=== PATIENT | male | born 1980 | race Caucasian/White ===

== ENCOUNTER 2022-08-12 16:54 | Inpatient (IN) | payer MEDICAID ==
[~2022-08-12] VITALS: Ht 162.6 cm; Wt 61.2 kg
[2022-08-12 18:35] LABS: BASOPHILS % 0.6 % (0.0-2.0); HEMATOCRIT. 31.7 % (42.0-52.0); HEMOGLOBIN. 11.2 g/dL (14.0-18.0); LYMPHOCYTES % 26.1 % (20.0-50.0); MEAN CORPUSCULAR HEMOGLOBIN 34.3 pg (28.0-32.0); MEAN CORPUSCULAR VOLUME 96.9 fL (80.0-94.0); MEAN PLATELET VOLUME 8.9 fl (7.4-10.4); MONOCYTES % 8.9 % (2.0-8.0); NEUTROPHILS % 63.4 % (40.0-76.0); PLATELET 324 x1000/uL (130-400); RED BLOOD CELL COUNT 3.27 mill/uL (4.7-6.1); RED CELL DISTRIBUTION WIDTH 12.4 % (11.6-14.6)
[2022-08-12 18:42] LABS: CHLORIDE 105 mEq/L (98-107)
[2022-08-12 18:55] LABS: ETHANOL BLOOD < 10 mg/dL
[2022-08-12] MEDS ORDERED: ASPIRIN 81MG TABLET PO ONE (19:00)
[2022-08-12] MEDS ORDERED: LORAZEPAM 1MG TABLET PO NR (20:45)
[2022-08-12] MEDS ORDERED: CLONAZEPAM 1MG TABLET PO NR (21:45)
[2022-08-12] MEDS ORDERED: LORAZEPAM 2MG/ML CPJ IV ONE (22:15)
[2022-08-12] MEDS ORDERED: CHLORDIAZEPOXIDE 25MG CAPSULE PO PRN (22:20)
[2022-08-12 22:39] LABS: HEPATITIS B SURFACE ANTIGEN NEGATIVE
[2022-08-12] MEDS ORDERED: LORAZEPAM 2MG/ML SYR IV SCH (23:15)
[2022-08-13] VITALS (55 sets, daily range): BP systolic 99–133; BP diastolic 50–91
[2022-08-13] MEDS: LORAZEPAM 2MG/ML CPJ IV SCH ×4 (00:52→05:30)
[2022-08-13] MEDS ORDERED: FOLIC ACID 1 MG, THIAMINE HCL 100 MG, MVI, ADULT NO.1 10 ML in DEXTROSE 5% WATER 1,000 ML IV NR ×4 (01:00)
[2022-08-13] MEDS ORDERED: LEVETIRACETAM 1,000 MG in SODIUM CHLORIDE 0.9% 100 ML IV ONE (01:00)
[2022-08-13] MEDS ORDERED: LEVETIRACETAM 1000MG PREMIX 100 ML IV NR (01:30)
[2022-08-13 04:49] LABS: BG BASE EXCESS 0.7 mmol/L (-2.0-2.0); BG CARBOXYHEMOGLOBIN 0.3 % (0.5-1.5); BG DEOXYHEMOGLOBIN 0.6 % (0.0-5.0); BG FRACTION INSPIRED OXYGEN 100; BG HCO3 ACT 24.9 mmol/L (22.0-26.0); BG METHEMOGLOBIN 0.4 % (0.0-1.5); BG OXYGEN SATURATION 99.4 % (92.0-98.5); BG OXYHEMOGLOBIN 98.7 % (94.0-97.0); BG PCO2 38.5 mmHg (35.0-45.0); BG PH 7.429 (7.350-7.450); BG PO2 339.5 mmHg (75.0-100.0); BG SAMPLE SITE RIGHT RADIAL; BG TOTAL HEMOGLOBIN 10.9 g/dL (12.0-18.0); BG VENT MODE MASK - NRB
[2022-08-13 05:23] LABS: BASOPHILS % 0.4 % (0.0-2.0); EOSINOPHILS % 0.6 % (0.0-5.0); HEMATOCRIT. 27.8 % (42.0-52.0); HEMOGLOBIN. 9.9 g/dL (14.0-18.0); LYMPHOCYTES % 23.6 % (20.0-50.0); MEAN CORPUSCULAR HEMOGLOBIN 34.5 pg (28.0-32.0); MEAN CORPUSCULAR VOLUME 96.2 fL (80.0-94.0); MEAN PLATELET VOLUME 8.6 fl (7.4-10.4); MONOCYTES % 10.3 % (2.0-8.0); NEUTROPHILS % 65.1 % (40.0-76.0); PLATELET 273 x1000/uL (130-400); RED BLOOD CELL COUNT 2.89 mill/uL (4.7-6.1); RED CELL DISTRIBUTION WIDTH 12.3 % (11.6-14.6)
[2022-08-13 05:29] LABS: CHLORIDE 105 mEq/L (98-107); PHOSPHORUS 4.1 mg/dL (2.5-4.9)
[2022-08-13] MEDS ORDERED: LORAZEPAM 2MG/ML CPJ IV PRN (07:00)
[2022-08-13] MEDS ORDERED: LEVETIRACETAM 500 MG in SODIUM CHLORIDE 0.9% 100 ML IV SCH (09:00)
[2022-08-13] MEDS ORDERED: LEVETIRACETAM 500MG PREMIX 100 ML IV SCH (09:00)
[2022-08-13] MEDS: LEVETIRACETAM 1,000 MG in SODIUM CHLORIDE 0.9% 100 ML IV SCH ×2 (09:08→21:35)
[2022-08-13] MEDS ORDERED: ONDANSETRON HCL 4MG/2ML INJ IV PRN (10:30)
[2022-08-13] MEDS ORDERED: CEFTRIAXONE 2GM/50ML (ADDEASE) 50 ML IV SCH (10:30)
[2022-08-13 10:37] LABS: CLARITY URINE CLEAR (CLEAR); COLOR URINE DARK YELLOW (YELLOW); KETONES URINE NEGATIVE (NEGATIVE); LEUKOCYTE ESTERASE URINE NEGATIVE (NEGATIVE); NITRITE URINE NEGATIVE (NEGATIVE); OCCULT BLOOD URINE NEGATIVE (NEGATIVE); PH URINE 6.5 (4.5-8.0); PROTEIN URINE NEGATIVE (NEGATIVE); SPECIFIC GRAVITY URINE 1.016 (1.005-1.030)
[2022-08-13] MEDS: SODIUM CHLORIDE 0.9% 1,000 ML IV SCH ×2 (10:49→17:46)
[2022-08-13] MEDS: PANTOPRAZOLE SODIUM 40 MG/VIAL IV SCH (10:50)
[2022-08-13 10:58] LABS: *AMPHETAMINES SCREEN URINE NEGATIVE (NEGATIVE); *BARBITURATES SCREEN URINE NEGATIVE (NEGATIVE); *BENZODIAZEPINES SCREEN URINE NEGATIVE (NEGATIVE); *COCAINE SCREEN URINE NEGATIVE (NEGATIVE); CANNABINOID URINE SCREEN NEGATIVE (NEGATIVE); METHADONE URINE SCREEN NEGATIVE (NEGATIVE); OPIATES URINE SCREEN NEGATIVE (NEGATIVE); PHENCYCLIDINE URINE SCREEN NEGATIVE (NEGATIVE)
[2022-08-13] MEDS: CEFTRIAXONE 2 G in DEXTROSE 5% WATER 50 ML IV SCH (12:24)
[2022-08-13] MEDS ORDERED: VANCOMYCIN 1G PREMIX 200 ML IV NR (13:30)
[2022-08-13] MEDS: ACYCLOVIR INJ 750 MG in DEXT 5% WATER 100 ML IV SCH ×2 (14:45→21:36)
[2022-08-13] MEDS: VANCOMYCIN 750MG PREMIX 150 ML IV SCH (22:17)
[2022-08-14] VITALS (38 sets, daily range): BP systolic 98–127; BP diastolic 45–100
[2022-08-14] MEDS: CEFTRIAXONE 2 G in DEXTROSE 5% WATER 50 ML IV SCH ×2 (00:32→11:42)
[2022-08-14] MEDS: SODIUM CHLORIDE 0.9% 1,000 ML IV SCH ×2 (02:30→10:27)
[2022-08-14 05:34] LABS: BASOPHILS % 0.3 % (0.0-2.0); EOSINOPHILS % 0.3 % (0.0-5.0); HEMATOCRIT. 30.3 % (42.0-52.0); HEMOGLOBIN. 10.6 g/dL (14.0-18.0); LYMPHOCYTES % 13.4 % (20.0-50.0); MEAN CORPUSCULAR HEMOGLOBIN 33.3 pg (28.0-32.0); MEAN CORPUSCULAR VOLUME 95.1 fL (80.0-94.0); MEAN PLATELET VOLUME 8.7 fl (7.4-10.4); MONOCYTES % 7.5 % (2.0-8.0); NEUTROPHILS % 78.5 % (40.0-76.0); PLATELET 297 x1000/uL (130-400); RED BLOOD CELL COUNT 3.19 mill/uL (4.7-6.1); RED CELL DISTRIBUTION WIDTH 12.2 % (11.6-14.6)
[2022-08-14 05:35] LABS: CHLORIDE 97 mEq/L (98-107)
[2022-08-14] MEDS: VANCOMYCIN 750MG PREMIX 150 ML IV SCH ×3 (06:21→22:08)
[2022-08-14] MEDS: PANTOPRAZOLE SODIUM 40 MG/VIAL IV SCH (08:42)
[2022-08-14] MEDS: ACYCLOVIR INJ 750 MG in DEXT 5% WATER 125 ML IV SCH ×2 (08:42→17:48)
[2022-08-14] MEDS: LEVETIRACETAM 1,000 MG in SODIUM CHLORIDE 0.9% 100 ML IV SCH (08:42)
[2022-08-14] MEDS: ACETAMINOPHEN 650MG/20.3ML UDC GT PRN (17:35)
[2022-08-14] MEDS ORDERED: NALOXONE HCL 0.4MG/ML VIAL IV PRN (21:30)
[2022-08-14] MEDS: HYDROCODONE/ACETAMINOPHEN 5/325MG TABLET PO PRN (22:01)
[2022-08-14] MEDS: LEVETIRACETAM 1000MG PREMIX 100 ML IV SCH (23:48)
[2022-08-14] MEDS: THIAMINE HCL 100MG TABLET PO SCH (23:56)
[2022-08-15] VITALS: BP 110/72
[2022-08-15] MEDS: ACYCLOVIR INJ 750 MG in DEXT 5% WATER 125 ML IV SCH ×4 (00:31→22:42)
[2022-08-15] MEDS: CEFTRIAXONE 2 G in DEXTROSE 5% WATER 50 ML IV SCH ×2 (01:41→13:15)
[2022-08-15] MEDS: SODIUM CHLORIDE 0.9% 1,000 ML IV SCH (01:41)
[2022-08-15] MEDS: LORAZEPAM 2MG/ML CPJ IV PRN (02:41)
[2022-08-15 04:00] VITALS: BP 133/70
[2022-08-15] MEDS: VANCOMYCIN 750MG PREMIX 150 ML IV SCH (05:45)
[2022-08-15 08:00] VITALS: BP 117/67
[2022-08-15] MEDS: THIAMINE HCL 100MG TABLET PO SCH (10:08)
[2022-08-15] MEDS: LEVETIRACETAM 1000MG PREMIX 100 ML IV SCH ×2 (10:08→20:07)
[2022-08-15] MEDS: PANTOPRAZOLE SODIUM 40 MG/VIAL IV SCH (10:08)
[2022-08-15 12:00] VITALS: BP 113/78
[2022-08-15] MEDS: VANCOMYCIN 1G PREMIX 200 ML IV SCH ×2 (14:08→21:08)
[2022-08-15 16:00] VITALS: BP 100/74
[2022-08-15] MEDS: ACETAMINOPHEN 650MG/20.3ML UDC GT PRN (18:50)
[2022-08-15 20:00] VITALS: BP 103/63
[2022-08-15] MEDS: HYDROCODONE/ACETAMINOPHEN 5/325MG TABLET PO PRN (22:18)
[2022-08-15] MEDS: ZOLPIDEM TARTRATE 5MG TABLET PO PRN (22:21)
[2022-08-16] VITALS: BP 120/80
[2022-08-16] MEDS: SODIUM CHLORIDE 0.9% 1,000 ML IV SCH ×3 (01:53→18:29)
[2022-08-16 04:00] VITALS: BP 101/77
[2022-08-16] MEDS: ACYCLOVIR INJ 750 MG in DEXT 5% WATER 125 ML IV SCH ×3 (05:55→23:05)
[2022-08-16] MEDS: HYDROCODONE/ACETAMINOPHEN 5/325MG TABLET PO PRN ×2 (06:35→22:25)
[2022-08-16 08:00] VITALS: BP 107/72
[2022-08-16 08:14] LABS: HIV SCREEN 4G Non Reactive (Non Reactive)
[2022-08-16] MEDS: LEVETIRACETAM 1000MG PREMIX 100 ML IV SCH ×2 (08:50→22:22)
[2022-08-16] MEDS: PANTOPRAZOLE SODIUM 40 MG/VIAL IV SCH (08:50)
[2022-08-16] MEDS: THIAMINE HCL 100MG TABLET PO SCH (08:50)
[2022-08-16 09:57] LABS: CHLORIDE 101 mEq/L (98-107)
[2022-08-16] MEDS ORDERED: LORAZEPAM 2MG/ML CPJ IV NR (10:00)
[2022-08-16 12:00] VITALS: BP 97/64
[2022-08-16 16:00] VITALS: BP 97/63
[2022-08-16] MEDS ORDERED: GADOTERATE MEGLUMINE 5 MMOL/10 ML VIAL IV ONE (18:13)
[2022-08-16 20:00] VITALS: BP 104/66
[2022-08-17] VITALS: BP 102/65
[2022-08-17] MEDS: SODIUM CHLORIDE 0.9% 1,000 ML IV SCH ×4 (01:15→21:54)
[2022-08-17 04:00] VITALS: BP 109/71
[2022-08-17] MEDS: HYDROCODONE/ACETAMINOPHEN 5/325MG TABLET PO PRN ×3 (05:03→19:22)
[2022-08-17] MEDS: ACYCLOVIR INJ 750 MG in DEXT 5% WATER 125 ML IV SCH ×3 (06:21→21:54)
[2022-08-17 08:00] VITALS: BP 104/56
[2022-08-17] MEDS: LEVETIRACETAM 1000MG PREMIX 100 ML IV SCH ×2 (10:07→21:54)
[2022-08-17] MEDS: PANTOPRAZOLE SODIUM 40 MG/VIAL IV SCH (10:07)
[2022-08-17] MEDS: THIAMINE HCL 100MG TABLET PO SCH (10:07)
[2022-08-17] MEDS ORDERED: LEVE1000 MT (10:30)
[2022-08-17] MEDS ORDERED: THIA100T72 PO (10:30)
[2022-08-17] MEDS ORDERED: VALA100044 MT (10:30)
[2022-08-17] MEDS ORDERED: LORA-249 MT (10:30)
[2022-08-17 12:00] VITALS: BP 98/56
[2022-08-17 16:00] VITALS: BP 104/66
[2022-08-17 20:00] VITALS: BP 101/58
[2022-08-17] MEDS: ZOLPIDEM TARTRATE 5MG TABLET PO PRN (21:55)
[2022-08-17] MEDS: METHOCARBAMOL 500MG TABLET PO PRN (22:14)
[2022-08-18] VITALS: BP 100/66
[2022-08-18] MEDS: HYDROCODONE/ACETAMINOPHEN 5/325MG TABLET PO PRN ×3 (00:31→23:59)
[2022-08-18 04:00] VITALS: BP 97/62
[2022-08-18] MEDS: ACYCLOVIR INJ 750 MG in DEXT 5% WATER 125 ML IV SCH ×3 (06:09→22:15)
[2022-08-18 08:00] VITALS: BP 108/71
[2022-08-18] MEDS: LEVETIRACETAM 1000MG PREMIX 100 ML IV SCH ×2 (08:56→20:29)
[2022-08-18] MEDS: THIAMINE HCL 100MG TABLET PO SCH (08:56)
[2022-08-18] MEDS: FAMOTIDINE 20MG TABLET PO SCH ×2 (08:58→18:08)
[2022-08-18] MEDS: SODIUM CHLORIDE 0.9% 1,000 ML IV SCH ×3 (09:31→23:58)
[2022-08-18 12:00] VITALS: BP 101/68
[2022-08-18 13:35] LABS: INR 1.1; PROTHROMBIN TIME 11.9 sec (9.6-11.0)
[2022-08-18 16:00] VITALS: BP 102/63
[2022-08-18 20:00] VITALS: BP 139/89
[2022-08-18] MEDS: METHOCARBAMOL 500MG TABLET PO PRN (22:16)
[2022-08-18] MEDS: ZOLPIDEM TARTRATE 5MG TABLET PO PRN (22:16)
[2022-08-19] VITALS: BP 104/69
[2022-08-19 03:59] VITALS: BP 100/67
[2022-08-19] MEDS: HYDROCODONE/ACETAMINOPHEN 5/325MG TABLET PO PRN ×2 (04:01→18:35)
[2022-08-19] MEDS: ACYCLOVIR INJ 750 MG in DEXT 5% WATER 125 ML IV SCH ×3 (06:21→21:16)
[2022-08-19] MEDS: LORAZEPAM 2MG/ML CPJ IV PRN (07:17)
[2022-08-19] MEDS ORDERED: LIDOCAINE HCL 1% 10 MG/ML 10ML VIAL ONE (07:24)
[2022-08-19 08:20] VITALS: BP 96/50
[2022-08-19] MEDS: THIAMINE HCL 100MG TABLET PO SCH (09:00)
[2022-08-19] MEDS: FAMOTIDINE 20MG TABLET PO SCH ×2 (09:00→17:54)
[2022-08-19 09:14] LABS: GLUCOSE CSF 59 mg/dL (41-75)
[2022-08-19] MEDS: LEVETIRACETAM 1000MG PREMIX 100 ML IV SCH ×2 (09:56→21:16)
[2022-08-19] MEDS: SODIUM CHLORIDE 0.9% 1,000 ML IV SCH ×2 (11:06→17:54)
[2022-08-19 12:00] VITALS: BP 94/58
[2022-08-19] MEDS: RISPERIDONE 1MG TABLET PO SCH (14:52)
[2022-08-19 16:00] VITALS: BP 97/68
[2022-08-19 20:00] VITALS: BP 102/66
[2022-08-19] MEDS: METHOCARBAMOL 500MG TABLET PO PRN (21:16)
[2022-08-19] MEDS: ZOLPIDEM TARTRATE 5MG TABLET PO PRN (21:16)
[2022-08-20] VITALS: BP 101/66
[2022-08-20] MEDS: HYDROCODONE/ACETAMINOPHEN 5/325MG TABLET PO PRN ×4 (00:44→20:57)
[2022-08-20 04:00] VITALS: BP 103/66
[2022-08-20] MEDS: SODIUM CHLORIDE 0.9% 1,000 ML IV SCH ×3 (05:39→17:45)
[2022-08-20] MEDS: ACYCLOVIR INJ 750 MG in DEXT 5% WATER 125 ML IV SCH ×3 (05:41→22:15)
[2022-08-20 07:42] LABS: BASOPHILS % 0.5 % (0.0-2.0); HEMATOCRIT. 29.2 % (42.0-52.0); HEMOGLOBIN. 10.4 g/dL (14.0-18.0); LYMPHOCYTES % 57.2 % (20.0-50.0); MEAN CORPUSCULAR HEMOGLOBIN 33.7 pg (28.0-32.0); MEAN CORPUSCULAR VOLUME 95.2 fL (80.0-94.0); MEAN PLATELET VOLUME 8.6 fl (7.4-10.4); MONOCYTES % 12.3 % (2.0-8.0); PLATELET 287 x1000/uL (130-400); RED BLOOD CELL COUNT 3.07 mill/uL (4.7-6.1); RED CELL DISTRIBUTION WIDTH 12.3 % (11.6-14.6)
[2022-08-20 08:00] VITALS: BP 97/61
[2022-08-20 09:23] LABS: CHLORIDE 103 mEq/L (98-107)
[2022-08-20] MEDS: THIAMINE HCL 100MG TABLET PO SCH (09:28)
[2022-08-20] MEDS: RISPERIDONE 1MG TABLET PO SCH (09:28)
[2022-08-20] MEDS: FAMOTIDINE 20MG TABLET PO SCH ×2 (09:28→17:45)
[2022-08-20] MEDS: LEVETIRACETAM 1000MG PREMIX 100 ML IV SCH ×2 (09:28→20:58)
[2022-08-20] MEDS: METHOCARBAMOL 500MG TABLET PO PRN (09:29)
[2022-08-20 12:00] VITALS: BP 135/75
[2022-08-20 16:00] VITALS: BP 102/65
[2022-08-20] MEDS: ZOLPIDEM TARTRATE 5MG TABLET PO PRN (17:45)
[2022-08-21] VITALS: BP 109/70
[2022-08-21] MEDS: SODIUM CHLORIDE 0.9% 1,000 ML IV SCH ×3 (03:20→17:10)
[2022-08-21 04:00] VITALS: BP 126/64
[2022-08-21] MEDS: ACYCLOVIR INJ 750 MG in DEXT 5% WATER 125 ML IV SCH ×3 (05:24→21:48)
[2022-08-21] MEDS: HYDROCODONE/ACETAMINOPHEN 5/325MG TABLET PO PRN ×3 (05:28→17:09)
[2022-08-21 08:00] VITALS: BP 100/66
[2022-08-21] MEDS: LEVETIRACETAM 1000MG PREMIX 100 ML IV SCH ×2 (09:00→20:53)
[2022-08-21] MEDS: RISPERIDONE 1MG TABLET PO SCH (09:00)
[2022-08-21] MEDS: THIAMINE HCL 100MG TABLET PO SCH (09:00)
[2022-08-21] MEDS: FAMOTIDINE 20MG TABLET PO SCH ×2 (09:00→16:43)
[2022-08-21 12:00] VITALS: BP 99/62
[2022-08-21] MEDS: METHOCARBAMOL 500MG TABLET PO PRN ×2 (13:47→20:53)
[2022-08-21 16:00] VITALS: BP 96/59
[2022-08-22] MEDS: HYDROCODONE/ACETAMINOPHEN 5/325MG TABLET PO PRN ×4 (00:30→20:31)
[2022-08-22] MEDS: SODIUM CHLORIDE 0.9% 1,000 ML IV SCH ×3 (01:36→18:59)
[2022-08-22] MEDS: ACYCLOVIR INJ 750 MG in DEXT 5% WATER 125 ML IV SCH ×2 (05:31→14:46)
[2022-08-22 08:00] VITALS: BP 97/68
[2022-08-22] MEDS: THIAMINE HCL 100MG TABLET PO SCH (10:15)
[2022-08-22] MEDS: RISPERIDONE 1MG TABLET PO SCH (10:15)
[2022-08-22] MEDS: FAMOTIDINE 20MG TABLET PO SCH ×2 (10:15→18:59)
[2022-08-22] MEDS: LEVETIRACETAM 1000MG PREMIX 100 ML IV SCH ×2 (10:16→22:42)
[2022-08-22] MEDS: METHOCARBAMOL 500MG TABLET PO PRN ×2 (10:33→18:58)
[2022-08-22 12:00] VITALS: BP 108/70
[2022-08-22 16:00] VITALS: BP 116/76
[2022-08-22 20:00] VITALS: BP 114/70
[2022-08-23] VITALS: BP 114/82
[2022-08-23] MEDS: ACYCLOVIR INJ 750 MG in DEXT 5% WATER 125 ML IV SCH ×2 (00:14→14:58)
[2022-08-23] MEDS: SODIUM CHLORIDE 0.9% 1,000 ML IV SCH ×2 (01:00→10:30)
[2022-08-23] MEDS: HYDROCODONE/ACETAMINOPHEN 5/325MG TABLET PO PRN ×3 (01:25→14:26)
[2022-08-23] MEDS: METHOCARBAMOL 500MG TABLET PO PRN ×2 (01:26→09:20)
[2022-08-23 04:00] VITALS: BP 102/60
[2022-08-23 08:00] VITALS: BP 118/88
[2022-08-23] MEDS: FAMOTIDINE 20MG TABLET PO SCH (09:19)
[2022-08-23] MEDS: RISPERIDONE 1MG TABLET PO SCH (09:20)
[2022-08-23] MEDS: THIAMINE HCL 100MG TABLET PO SCH (09:20)
[2022-08-23] MEDS: LEVETIRACETAM 1000MG PREMIX 100 ML IV SCH (09:21)
[2022-08-23] MEDS ORDERED: RISP1 MT (10:24)
[2022-08-23 11:51] VITALS: BP 93/64
[2022-08-23 16:00] VITALS: BP 102/72
[2022-08-25 12:57] LABS: *HSV 1 DNA PCR NEGATIVE; *HSV 2 DNA PCR NEGATIVE
== END 2022-08-23 17:08 | disposition home health service (06) | DRG 50 ==
LOC: ER 16:54 → EDBEDREQ 18:59 → MICUSO 21:57 → 3WST 08-13 00:26 → MICUSO 08-13 01:03 → 7EST 08-14 13:13 → 6EST 08-20 11:21
PROVIDERS: ADMIT Internal Medicine; ATTEND Internal Medicine
PROC: 4A00X4Z Measurement of Central Nervous Electrical Activity, External Approach (ICD-10-PCS; principal; 2022-08-15)
PROC: 009U3ZZ Drainage of Spinal Canal, Percutaneous Approach (ICD-10-PCS; 2022-08-19)
PROC: B01B1ZZ Fluoroscopy of Spinal Cord using Low Osmolar Contrast (ICD-10-PCS; 2022-08-19)
DX: B00.4 Herpesviral encephalitis (principal); I63.9 Cerebral infarction, unspecified; G93.41 Metabolic encephalopathy; E44.1 Mild protein-calorie malnutrition; R64 Cachexia; A52.3 Neurosyphilis, unspecified; I69.354 Hemiplegia and hemiparesis following cerebral infarction affecting left non-dominant side; F10.21 Alcohol dependence, in remission; R62.7 Adult failure to thrive; R56.9 Unspecified convulsions; D64.9 Anemia, unspecified; K74.60 Unspecified cirrhosis of liver; B19.20 Unspecified viral hepatitis C without hepatic coma; R74.01 Elevation of levels of liver transaminase levels; R03.0 Elevated blood-pressure reading, without diagnosis of hypertension; R41.1 Anterograde amnesia; Z88.0 Allergy status to penicillin; Z99.3 Dependence on wheelchair; Z68.23 Body mass index [BMI] 23.0-23.9, adult
CPT/HCPCS: 36415; 36600; 62328; 70544; 70547; 70552; 70553; 71045; 80048; 80053; 80061; 80202; 80305; 80320; 81003; 82140; 82375; 82542; 82805; 82945; 82962; 83735; 84100; 84145; 84157; 84484; 85025; 85651; 86592; 86635; 86705; 86709; 86803; 87070; 87116; 87252; 87340; 87389; 87426; 87529; 87899; 93005; 93306; 95816; 97110; 97162; 97164; 99285; A9577; C1893; C9113; J0133; J0696; J1953; J2060; J3370; J3411; J3490; J7030; J7050; J7060; J7070; G0480